=== PATIENT | female | born 1975 | race Hispanic/Latino ===

== ENCOUNTER → 2018-05-31 | Outpatient (CLI) | payer OTHER | END | disposition home or self-care (01) | LOC: RAH 15:41 | PROVIDERS: ATTEND Obstetrics & Gynecology | DX: Z12.31 Encounter for screening mammogram for malignant neoplasm of breast (principal) | CPT/HCPCS: 77067 ==

== ENCOUNTER 2018-07-05 19:28 | Emergency (ER) | payer OTHER ==
[2018-07-05] MEDS ORDERED: CLINDAMYCIN HCL 150 MG CAP ONE (22:23)
[2018-07-05] MEDS ORDERED: KETOROLAC TROMETHAMINE 30MG/ML ONE (22:24)
== END 2018-07-05 22:36 | disposition home or self-care (01) ==
LOC: EDH 19:28
DX: L03.111 Cellulitis of right axilla (principal); Z88.1 Allergy status to other antibiotic agents; Z88.2 Allergy status to sulfonamides; Z98.51 Tubal ligation status
CPT/HCPCS: 81025; 96372; 99283; J1885

== ENCOUNTER → 2018-10-18 | Outpatient (CLI) | payer OTHER ==
[2018-10-18 14:32] LABS: BASOPHILS % (AUTO) 1.3 % (0.0-5.0); EOSINOPHILS % (AUTO) 4.9 % (0.0-8.0); HEMATOCRIT 41.9 % (36-48); LYMPHOCYTES % (AUTO) 32.5 % (21.0-51.0); MEAN CORPUSCULAR HEMOGLOBIN 33.2 pg (27.0-33.0); MEAN CORPUSCULAR HGB CONC 34.4 g/dL (32.0-36.0); MEAN CORPUSCULAR VOLUME 96.4 fL (79-99); MONOCYTES % (AUTO) 6.6 % (3.0-13.0); NEUTROPHILS % (AUTO) 54.7 % (40.0-77.0); PLATELET COUNT (AUTO) 303 K/uL (130-400); RED BLOOD CELL COUNT(AUTO) 4.34 MIL/uL (4.00-5.50); RED CELL DISTRIBUTION WIDTH 13.4 % (11.0-15.5); WHITE BLOOD COUNT (AUTO) 6.3 K/uL (4.8-10.8)
[2018-10-18 14:43] LABS: APPEARANCE,URINE CLEAR (CLEAR); BILIRUBIN,URINE NEGATIVE (NEGATIVE); COLOR,URINE YELLOW (YELLOW); GLUCOSE, URINE (UA) NEGATIVE (NEGATIVE); KETONES,URINE NEGATIVE (NEGATIVE); LEUKOCYTE ESTERASE ,URINE TRACE (NEGATIVE); NITRATE,URINE NEGATIVE (NEGATIVE); OCCULT BLOOD,URINE NEGATIVE (NEGATIVE); PROTEIN,URINE NEGATIVE (NEGATIVE); UROBILINOGEN,URINE 0.2 mg/dL (0.2-1.0)
[2018-10-18 14:51] LABS: BACTERIA,URINE Rare /HPF (None Seen); RBC,URINE 0-1 /HPF (0-1); SQUAMOUS EPITHELIAL CELL,UR Rare /HPF (0-2)
[2018-10-18 17:09] LABS: BILIRUBIN,TOTAL 0.4 mg/dL (0.2-1.0); POTASSIUM 3.8 mmol/L (3.5-5.1); TOTAL PROTEIN, SERUM 8.7 g/dL (6.0-8.3)
[2018-10-18 17:24] LABS: ALBUMIN 3.8 g/dL (3.5-5.0); CREATININE 0.8 mg/dL (0.5-1.5)
[2018-10-18 17:56] LABS: THYROID STIMULATING HORMONE 2.39 uIU/mL (0.36-3.74)
== END | disposition home or self-care (01) ==
LOC: LAB 13:30
PROVIDERS: ATTEND Family Medicine
DX: Z00.00 Encounter for general adult medical examination without abnormal findings (principal)
CPT/HCPCS: 36415; 80053; 80061; 81001; 82270; 82306; 83036; 84443; 85025

== ENCOUNTER → 2018-10-28 | Outpatient (CLI) | payer OTHER ==
[2018-10-28 10:25] LABS: LIPASE 107 U/L (114-286)
== END | disposition home or self-care (01) ==
LOC: RAH 08:27
PROVIDERS: ATTEND Internal Medicine
DX: R10.13 Epigastric pain (principal)
CPT/HCPCS: 36415; 76700; 82607; 83001; 83002; 83516; 83690; 86038; 86160; 86215; 86235; 86255; 86431; 86677; 87520

== ENCOUNTER 2018-12-03 07:42 | Day surgery (SDC) | payer OTHER ==
[~2018-12-03] VITALS: Ht 162.6 cm; Wt 92.5 kg
[~2018-12-03 07:42] MED LIST: PANT40TA PO; PILO5TAB PO; SODIUM CHLORIDE 0.9% 1000ML 1,000 ML IV ONE
[2018-12-03 08:26] VITALS: BP 134/98
[2018-12-03 09:11] LABS: BASOPHILS % (AUTO) 1.2 % (0.0-5.0); HEMATOCRIT 37.6 % (36-48); LYMPHOCYTES % (AUTO) 31.4 % (21.0-51.0); MEAN CORPUSCULAR HEMOGLOBIN 33.1 pg (27.0-33.0); MEAN CORPUSCULAR HGB CONC 34.3 g/dL (32.0-36.0); MEAN CORPUSCULAR VOLUME 96.5 fL (79-99); MONOCYTES % (AUTO) 10.6 % (3.0-13.0); NEUTROPHILS % (AUTO) 52.8 % (40.0-77.0); PLATELET COUNT (AUTO) 243 K/uL (130-400); RED CELL DISTRIBUTION WIDTH 13.5 % (11.0-15.5); WHITE BLOOD COUNT (AUTO) 5.2 K/uL (4.8-10.8)
[2018-12-03 09:29] LABS: CREATININE 0.9 mg/dL (0.5-1.5); POTASSIUM 3.9 mmol/L (3.5-5.1)
[2018-12-03 09:31] LABS: INR 0.99 (0.85-1.15); PROTHROMBIN TIME 10.4 SEC (9.6-11.6)
[2018-12-03 09:35] LABS: ALBUMIN 3.5 g/dL (3.5-5.0); BILIRUBIN,TOTAL 0.5 mg/dL (0.2-1.0); TOTAL PROTEIN, SERUM 8.4 g/dL (6.0-8.3)
[2018-12-03] MEDS ORDERED: PROPOFOL 10 MG/ML 20ML VIAL IV ONE (10:09)
[2018-12-03] MEDS ORDERED: LIDOCAINE HCL 1% 20 ML VIAL ONE (10:09)
[2018-12-03 10:35] VITALS: BP_SYST 104; BP_SYST 148; BP_DIAS 65; BP_DIAS 80
[2018-12-03 10:38] VITALS: BP 115/72
[2018-12-03 10:44] VITALS: BP 113/69
[2018-12-04 08:11] LABS: HEPATITIS A ANTIBODY IGM Negative (Negative); HEPATITIS Bs ANTIGEN SCREEN P Negative (Negative)
== END 2018-12-03 10:59 | disposition home or self-care (01) ==
LOC: ENDO 07:42 → DAH 07:42 → ENDO 10:59
PROVIDERS: ATTEND Internal Medicine
DX: K29.50 Unspecified chronic gastritis without bleeding (principal); K57.31 Diverticulosis of large intestine without perforation or abscess with bleeding; K64.0 First degree hemorrhoids; K44.9 Diaphragmatic hernia without obstruction or gangrene; K22.8 Other specified diseases of esophagus; K31.89 Other diseases of stomach and duodenum; K62.89 Other specified diseases of anus and rectum; M35.00 Sjogren syndrome, unspecified; K74.3 Primary biliary cirrhosis; Z90.89 Acquired absence of other organs
CPT/HCPCS: 36415; 43239; 45378; 80053; 82105; 82172; 82247; 82977; 83010; 83883; 84460; 85025; 85610; 86704; 86706; 86708; 86709; 86717; 87340; 87350; A4606; J2704; J7030

== ENCOUNTER → 2019-01-14 | Outpatient (CLI) | payer OTHER ==
[~2019-01-14] MED LIST changes: -SODIUM CHLORIDE 0.9% 1000ML 1,000 ML IV ONE
== END | disposition home or self-care (01) ==
LOC: LAB 14:44
PROVIDERS: ATTEND Internal Medicine
DX: K74.3 Primary biliary cirrhosis (principal)
CPT/HCPCS: 36415; 85651; 86038; 86140; 86255; 86431

== ENCOUNTER → 2019-12-12 | Outpatient (CLI) | payer OTHER | END | disposition home or self-care (01) | LOC: RAH 13:25 | PROVIDERS: ATTEND Internal Medicine | DX: Z12.31 Encounter for screening mammogram for malignant neoplasm of breast (principal) | CPT/HCPCS: 77067 ==

== ENCOUNTER → 2020-05-14 | Outpatient (CLI) | payer OTHER ==
[2020-05-14 16:21] LABS: APPEARANCE,URINE CLOUDY (CLEAR); BILIRUBIN,URINE NEGATIVE (NEGATIVE); COLOR,URINE YELLOW (YELLOW); GLUCOSE, URINE (UA) NEGATIVE (NEGATIVE); KETONES,URINE NEGATIVE (NEGATIVE); LEUKOCYTE ESTERASE ,URINE MODERATE (NEGATIVE); NITRATE,URINE POSITIVE (NEGATIVE); OCCULT BLOOD,URINE NEGATIVE (NEGATIVE); PROTEIN,URINE NEGATIVE (NEGATIVE); UROBILINOGEN,URINE 0.2 mg/dL (0.2-1.0)
[2020-05-14 16:28] LABS: RBC,URINE 0-1 /HPF (0-1)
[2020-05-14 16:29] LABS: BACTERIA,URINE Moderate /HPF (None Seen); SQUAMOUS EPITHELIAL CELL,UR Few /HPF (0-2)
== END | disposition home or self-care (01) ==
LOC: LAB 15:48
PROVIDERS: ATTEND Internal Medicine
DX: N39.0 Urinary tract infection, site not specified (principal)
CPT/HCPCS: 81001; 87077; 87088; 87186

== ENCOUNTER → 2020-06-20 | Outpatient (CLI) | payer OTHER | END | disposition home or self-care (01) | LOC: RAH 15:21 | PROVIDERS: ATTEND Obstetrics & Gynecology | DX: R10.2 Pelvic and perineal pain (principal) | CPT/HCPCS: 76856 ==

== ENCOUNTER → 2021-04-22 | Outpatient (CLI) | payer OTHER | END | disposition home or self-care (01) | LOC: RAH 16:05 | PROVIDERS: ATTEND Internal Medicine | DX: Z12.31 Encounter for screening mammogram for malignant neoplasm of breast (principal) | CPT/HCPCS: 77067 ==

== ENCOUNTER 2024-05-31 09:28 | Emergency (ER) | payer OTHER, BC ==
[~2024-05-31] VITALS: Ht 162.6 cm; Wt 83.9 kg
[~2024-05-31 09:28] MED LIST changes: +NAPR-1192 PO; -PANT40TA PO; -PILO5TAB PO
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
[2024-05-31] MEDS: ketOROlac 15MG/ML VIAL (15MG/ML) IM ONE (11:14)
[2024-05-31] MEDS: ondanSETRON 4MG INJ IVP ONE (11:14)
[2024-05-31] MEDS: ondanSETRON ODT 4MG TAB SL ONE (11:14)
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
[2024-05-31] MEDS ORDERED: ORPH100 PO (11:48)
[2024-05-31] MEDS ORDERED: MELO-108 PO (11:48)
[2024-05-31 11:57] VITALS: BP 126/80; PULSE 62; RESP 15; TEMP 97.8; O2SAT 100
== END 2024-05-31 12:01 | disposition home or self-care (01) ==
LOC: EDH 09:28
DX: M62.838 Other muscle spasm (principal); Z88.2 Allergy status to sulfonamides; V89.2XXA Person injured in unspecified motor-vehicle accident, traffic, initial encounter; Y93.89 Activity, other specified; Y92.89 Other specified places as the place of occurrence of the external cause; Y99.8 Other external cause status
CPT/HCPCS: 99285; 72125; 96372; J1885

== ENCOUNTER → 2024-07-20 | Outpatient (CLI) | payer BC ==
[~2024-07-20] MED LIST changes: +MELO-108 PO; +ORPH100 PO
--- NOTE | 2024-07-21 10:36 | HMCIMG ---
MAMMO SCREENING BILATERAL HISTORY: Screening mammogram. COMPARISON: 04/22/2021 TECHNIQUE: Bilateral screening mammogram with CAD was performed with craniocaudal and mediolateral oblique projections. FINDINGS: There are scattered areas of fibroglandular density. There is no evidence of a dominant mass, or suspicious microcalcification. There is no evidence of nipple retraction or skin thickening. IMPRESSION: 1. Stable mammogram. Patient was entered into a reminder system with a target due date for their next mammogram. BI-RADS: CATEGORY 2: BENIGN FINDINGS Recommend monthly self breast exam as well as annual clinical examination. A negative x-ray should not delay biopsy if a dominant or clinically suspicious mass is present, since 8-10% of cancers are not identified by mammography. Dense breasts particularly, may obscure an underlying neoplasm. Some of these may be detected clinically and therefore, clinical examination is an essential part of breast evaluation.
== END | disposition home or self-care (01) ==
LOC: RAH 14:11
PROVIDERS: ATTEND Family Medicine
DX: Z12.31 Encounter for screening mammogram for malignant neoplasm of breast (principal); R92.323 Mammographic fibroglandular density, bilateral breasts
CPT/HCPCS: 77067

== ENCOUNTER 2024-10-04 20:08 | Emergency (ER) | payer BC ==
[~2024-10-04] VITALS: Ht 162.6 cm; Wt 84.4 kg
[2024-10-04] MEDS: 0.9%NACL 1000ML 1,000 ML IV STA (20:40)
[2024-10-04] MEDS: FAMOTIDINE 20MG VIAL IV STA (20:43)
[2024-10-04] MEDS ORDERED: DIPH50 PO (21:06)
--- NOTE | 2024-10-04 21:07 | ERN ---
ED Note History of Present Illness Stated Complaint: STUNG BY YELLOWJACKETS, ALLERGIC Chief Complaint: Allergic Reaction Time Seen by MD: 20:24 Time Seen by Midlevel: 20:25 Dictation: 49-year-old female with a history of lupus coming in with complaints of bee sting to her left hand. Patient states after the sting she began to feel dizzy. Denies any shortness a breath, difficulty breathing. Allergies: Coded Allergies: Sulfa (Sulfonamide Antibiotics) (Unverified Allergy, Unknown, ITCHING, 04/24/16) Home Meds Active Scripts Orphenadrine Citrate (Norflex) 100 Mg Srtab, 1 TAB PO DAILY PRN for pain for 5 Days, #5 TAB 0 Refills Prov:FAITH DONAHUE MD 05/31/24 Meloxicam (Meloxicam) 15 Mg Tablet, 1 TAB PO BID for pain for 14 Days, #14 TAB 0 Refills Prov:FAITH DONAHUE MD 05/31/24 Naproxen (Naproxen) 375 Mg Tablet, 1 TAB PO BID for pain for 7 Days, #14 TAB 0 Refills with food Prov:LEONARD MEDELLIN MD 02/24/24 Past Medical History Past Medical History: Other Additional Past Medical Hx: HX OF LUPUS; CIRRHOSIS OF LIVER Surgical History: Tonsillectomy Surgical History Other: TUBAL LIGATION LMP: Oct 01, 2024 Review of System Dictation Constitutional: States feels dizzy after insect bite Eyes: Negative for injury, pain,redness, and discharge ENT: Negative for injury,pain or swelling Cardiovascular: Negative for chest pain, palpitations, and edema Respiratory: Negative for shortness of breath, cough, and wheezing, Abdomen/GI: Negative for abdominal pain, nausea, vomiting, diarrhea, and co nstipation Back: Negative for injury and pain : Negative for injury, bleeding and discharge MS/Extremity: Negative for injury and deformity Skin: Negative for rash, and discoloration Neuro: Negative for headache, weakness, numbness, tingling, and seizure Psych: Negative for suicide ideation, homicidal ideation, and hallucinations Review of Systems: was completed Initial Vital Sign VS Vital Signs Date Time Temp Pulse Resp B/P (MAP) Pulse Ox O2 Delivery O2 Flow Rate FiO2 10/04/24 20:14 98.2 109 20 134/93 98 Room Air Physical Exam Dictation General: awake, alert, NAD Head/Face: Normocephalic, atraumatic Eyes: PERRL, EOMI, vision at baseline ENT: oral cavity clear, TMs clear, no signs of infection Neck: Trachea midline, supple, no nuchal rigidity Cardiovascular: RRR, normal S1/S2, No MRGs, no JVD Respiratory: CTAB, no respiratory distress, No rales or wheezes Abdomen: Soft, non-tender, non-distended, normal bowel sounds, no guarding or rebound. Skin: Warm, dry, normal turgor, no rash, insect bites noted to the left hand, minimal swelling, no lancets left behind MS/Extremity: Pulses equal, no cyanosis, neurovascular intact, FROM Neuro: COAx4, GCS 15, strength 5/5, CN 2-12 intact, normal cerebellar exam, normal gait, Psych: Normal behavior, mood, and affect normal ED Course ED Course Orders Procedure Category Date Status Time 0.9%Nacl 1000ml (Ns PHA 10/04/24 In Process 1000ml) 20:27 Diphenhydramine Hcl PHA 10/04/24 Complete (Benadryl Inj) 20:27 Methylprednisolone PHA 10/04/24 Complete Succ 125mg (Solu-Medr 20:27 Famotidine 20mg Vial PHA 10/04/24 Complete (Pepcid 20mg Vial) 20:27 Ketorolac PHA 10/04/24 Complete Tromethamine 15mg/Ml 20:27 Current Medications Medications (Trade) Dose Ordered Sig/Chelsea Route PRN Reason Start Time Stop Time Status Last Admin Dose Admin Diphenhydramine HCl (BENAdryl INJ) 25 mg ONCE STAT IV 10/04/24 20:27 10/04/24 20:30 DC 10/04/24 20:43 Famotidine (Pepcid 20mg Vial) 20 mg ONCE STAT IV 10/04/24 20:27 10/04/24 20:30 DC 10/04/24 20:43 Ketorolac Tromethamine (toRADol) 15 mg ONCE STAT IV 10/04/24 20:27 10/04/24 20:30 DC 10/04/24 20:43 Methylprednisolone Sodium Succinate (Solu-medROL 125MG) 125 mg ONCE STAT IVP 10/04/24 20:27 10/04/24 20:30 DC 10/04/24 20:43 Sodium Chloride 1,000 ml @ 1,000 mls/hr Q1H STAT IV 10/04/24 20:27 10/04/24 21:26 10/04/24 20:40 Vital Signs Date Time Temp Pulse Resp B/P (MAP) Pulse Ox O2 Delivery O2 Flow Rate FiO2 10/04/24 20:14 98.2 109 20 134/93 98 Room Air Medical Decision Making MDM MDM: 49-year-old female with a history of lupus coming in with complaints of bee sting to her left hand. Patient states after the sting she began to feel dizzy. Denies any shortness a breath, difficulty breathing. On physical exam there is no oral angioedema, no swelling, no shortness a breath. After medication for allergic reactions patient feels better. Patient will be discharged on Benadryl. Differential diagnosis: Allergic reaction to bee sting, anaphylactic reaction, Rationale: Tests considered and ordered secondary to shared decision making include: Previous outside records reviewed: Old ER visits. Risk of complication and/or morbidity or mortality of patient management: None Medications-Per medication reconciliation Need for hospitalization: Patient does not meet criteria for hospitalization. Need for emergency major/minor surgery: No There are no social concerns with this patient. Prescription drug management Prescriptions will include symptomatic care Patient's prior external medical records from other ER visits were reviewed by me as indicated. Prior testing and results from previous visits were reviewed. Prior tests were taken into account with medical decision making and resource utilization, independent historian/historians were used to obtain complete m edical history. I independently interpreted the test that were performed, results were reviewed by me and considered findings on radiology if ordered. Medical management and examination interpretation discussions were had by me with other qualified healthcare professionals as indicated for the patient's care. DX & DISP Disposition: Discharge Departure Impression: Primary Impression: Bee sting allergy Condition: Stable Scripts Diphenhydramine HCl (Benadryl) 50 Mg Cap 50 MG PO Q6H for itching/rash, #20 CAP 0 Refills Prov: RICHARD CHAPA NP 10/04/24 Referrals: NORMA QUINN MD (PCP) Time of Disposition: 21:06 I have reviewed the case, and I agree with, Diagnosis and Plan RICHARD CHAPA NP Oct 04, 2024 21:07
[2024-10-04 21:18] VITALS: BP 128/74; PULSE 84; RESP 18; TEMP 98.2; O2SAT 98
== END 2024-10-04 21:20 | disposition home or self-care (01) ==
LOC: EDH 20:08
DX: T63.441A Toxic effect of venom of bees, accidental (unintentional), initial encounter (principal); Z88.2 Allergy status to sulfonamides; Z90.89 Acquired absence of other organs; Z98.51 Tubal ligation status; Y92.89 Other specified places as the place of occurrence of the external cause
CPT/HCPCS: 99284; 96374; 96375; J1885; J2919; J1200; J3490; J7030